=== PATIENT | female | born 1930 | race Asian ===

== ENCOUNTER 2018-10-21 09:23 | Inpatient (IN) | payer MEDICARE, MEDICAID ==
[2018-10-21] MEDS ORDERED: Aspirin Chewable 81 MG TAB ONE (09:39)
[2018-10-21 09:54] LABS: #Basophils 0.1 thou/uL (0.0-0.2); #Lymphocytes 1.3 thou/uL (1.20-3.40); #Neutrophils 12.5 thou/uL (1.40-6.50); %Basophils 0.6 % (0.0-1.0); %Eosinophils 0.1 % (0.0-10.0); %Lymphocytes 8.4 % (21.0-51.0); %Monocytes 6.9 % (0.0-10.0); Hemoglobin 12.9 g/dL (12.0-16.0); Mean Corpuscular HGB CONC 31.5 g/dL (32.0-36.0); Mean Corpuscular Hemoglobin 25.7 pg (27.0-31.0); Mean Corpuscular Volume 81.5 fL (78.0-98.0); Mean Platelet Volume 10.6 fL (7.4-10.4); Platelet Count 172 thou/uL (130-400); RBC Distribution Width 13.4 % (11.5-14.5); Red Blood Cell (RBC) Count 5.04 mill/uL (4.20-5.40); White Blood Cell (WBC) Count 14.9 thou/uL (4.8-10.8)
--- NOTE | 2018-10-21 09:58 | RAD ---
RADIOGRAPH CHEST 1 VIEW: DATE: 10/21/2018 HISTORY: 88-year-old female with chest pain FINDINGS: There are no airspace densities, pulmonary edema, pneumothorax, or cardiomegaly. The lateral costophr enic angles are sharp. IMPRESSION: No acute cardiopulmonary findings.
[2018-10-21] MEDS ORDERED: Heparin 10,000 UNITS/ 10 ML VIAL ONE (10:00)
[2018-10-21] MEDS ORDERED: Nitroglycerin 2% Ointment 1 INCH/1 GM Packet ONE (10:01)
[2018-10-21 10:12] LABS: Digoxin Less than 0.15 ng/mL (0.8-2.0)
[2018-10-21 10:14] LABS: ALT (SGPT) 22 U/L (8-55); AST (SGOT) 65 U/L (5-34); Albumin 3.6 g/dL (3.4-4.8); Alkaline Phosphatase 68 U/L (40-150); Anion Gap 13 mmol/L (10-20); BUN (Urea Nitrogen) 19 mg/dL (9.8-20.1); Bilirubin, Total 0.7 mg/dL (0.2-1.2); CK (CPK) 332 U/L (29-168); Calc. Creatinine Clearance 0 mL/min (70-130); Carbon Dioxide 20 mmol/L (23-31); Chloride 101 mmol/L (98-107); Estimated GFR-MDRD 53; Glucose 197 mg/dL (83-110); Lipase 8 U/L (8-78); Potassium 4.1 mmol/L (3.5-5.1); Protein, Total 6.6 g/dL (6.0-8.3); Sodium 130 mmol/L (136-145)
--- NOTE | 2018-10-21 10:29 | CON ---
DATE OF CONSULTATION: REASON FOR CONSULTATION: Acute myocardial infarction. HISTORY OF PRESENT ILLNESS: Ms. Starks is an 88-year-old woman, who started having difficulty with breathing this morning. She is also having mild chest discomfort. She presented to the emergency room, where she did have ST-segment elevation noted inferiorly. Cannot exclude the inferior Q-waves. The patient continues to appear to be in distress. History is obtained from her grandson and son. PAST MEDICAL HISTORY: None. MEDICATIONS: None. ALLERGIES: NONE. PAST SURGICAL HISTORY: None. REVIEW OF SYSTEMS: Difficult to obtain. PHYSICAL EXAMINATION: GENERAL: The patient is a pleasant 88-year-old woman, who is in no acute distress. The patient appears their stated age. VITAL SIGNS: Blood pressure 118/69, pulse 80, and respirations 20. NEUROLOGIC: The patient is alert and oriented x3 with no focal neurologic deficits. HEENT: Sclerae without icterus. Mouth has moist mucous membranes with normal pallor. NECK: No JVD. Carotid upstroke brisk. No bruits bilaterally. LUNGS: Clear to auscultation with unlabored respirations. BACK: No scoliosis or kyphosis. CARDIAC: Regular rate and rhythm with normal S1 and S2. No S3 or S4 noted. No significant rubs, murmurs, thrills, or gallops noted throughout the precordium. PMI is not displaced. There is no parasternal heave. ABDOMEN: Soft, nontender, nondistended. No peritoneal signs present. No hepatosplenomegaly. No abnormal striae. EXTREMITIES: 2+ femoral and 2+ dorsalis pedis pulses. No cyanosis, clubbing, or edema. SKIN: No gross abnormalities. PERTINENT LABORATORY DATA: Hemoglobin 12.9 and white blood cell count 14.9. IMPRESSION: Acute inferior myocardial infarction. RECOMMENDATIONS: Initial plan was to proceed with coronary angiography. Given her EKG findings in addition to distress, recommended the above. I discussed in full detail with both the grandson and the son. The risks include but not limited to the following: , stroke, NC, need for emergency surgery, loss of limb, bleeding, and infection, as well as a reaction to the dye causing kidney failure and needing long-term dialysis. Other risks include acute stent thrombosis and restenosis, vessel dissection, perforation, need for emergency surgery in addition to distal embolization causing chronic foot discomfort as well as amputation. All questions were answered. After further discussion, the family has opted to proceed with the conservative therapy. They understand the risk of . The medical record does show she is 88, but the family states she is actually 89 years of age. They are not interested in proceeding with angio or bypass or any other invasive means or measures. They also wish the patient not be intubated or cardioverted or compressions. After much discussion, I was decided to proceed with medical therapy. We will add aspirin in addition to Plavix and Lovenox. We will also add Nitropaste half an inch. The patient can be placed in the MICU overnight for close observation. Job ID: [id number]
[2018-10-21 10:51] LABS: CKMB 14.3 ng/mL (0-6.6)
--- NOTE | 2018-10-21 11:30 | PDOC.FPRHP ---
- History of Present Illness Chief Complaint: not feeling well History of Present Illness: 88 yo F with HTN, glaucoma brought in by family for "not feeling well." In ER had troponins in the 30s and was found to have a STEMI w/ ST elevations in inferolateral leads. Cardiology consulted for cardiac cath but after conversation with family they have opted for medical management and DNR status. She was started on heparin and given ASA. Given nitro paste. Patient reports feeling better at time of my assessment, denies chest pain but never had any other symptoms to begin with aside from not feeling well. No prior cardiac history. - History PMHx: HTN, glaucoma PSHx: right eye surgery for glaucoma FHx:non offered Social: denies TAD - Review of Systems General: denies: fever/chills, weight/appetite/sleep changes ENT: denies: nasal congestion, rhinorrhea Respiratory: denies: cough, congestion, shortness of breath Cardiovascular: denies: chest pain, palpitation, orthopnea Gastrointestinal: denies: nausea, vomiting, diarrhea, GI bleeding Genitourinary: denies: dysuria Skin: denies: rashes, lesions Neurological: reports: weakness. denies: numbness, syncope Psychological: denies: anxiety, depression - Vital signs BP: [106/70] HR: [62] RR: [16] Tmax: [] Pox: [98]% on [RA] Wt: [] - Physical Exam Constitutional: NAD -Constitutional: lethargic but responsive to my voice Neck: supple, FROM Heart: RRR, normal S1/S2 Lungs: CTAB, no respiratory distress Abdomen: soft, non-tender Musculoskeletal: normal structure, normal tone Neurological: no focal deficit, CN II-XII intact Skin: capillary refill <2 seconds Heme/Lymphatic: no unusual bruising or bleeding, no purpura FMR H&P: Results - Labs Result Diagrams: 10/21/18 09:37 10/21/18 09:37 Lab results: WBC 14.9 thou/uL (4.8-10.8) H 10/21/18 09:37 Hgb 12.9 g/dL (12.0-16.0) 10/21/18 09:37 Hct 41.1 % (36.0-47.0) 10/21/18 09:37 MCV 81.5 fL (78.0-98.0) 10/21/18 09:37 Plt Count 172 thou/uL (130-400) 10/21/18 09:37 Neutrophils % 84.0 % (42.0-75.0) H 10/21/18 09:37 Sodium 130 mmol/L (136-145) L 10/21/18 09:37 Potassium 4.1 mmol/L (3.5-5.1) 10/21/18 09:37 Chloride 101 mmol/L (98-107) 10/21/18 09:37 Carbon Dioxide 20 mmol/L (23-31) L 10/21/18 09:37 BUN 19 mg/dL (9.8-20.1) 10/21/18 09:37 Creatinine 0.98 mg/dL (0.6-1.1) 10/21/18 09:37 Glucose 197 mg/dL (83-110) H 10/21/18 09:37 Calcium 9.0 mg/dL (7.8-10.44) 10/21/18 09:37 Total Bilirubin 0.7 mg/dL (0.2-1.2) 10/21/18 09:37 AST 65 U/L (5-34) H 10/21/18 09:37 ALT 22 U/L (8-55) 10/21/18 09:37 Alkaline Phosphatase 68 U/L (40-150) 10/21/18 09:37 Creatine Kinase 332 U/L (29-168) H 10/21/18 09:37 CK-MB (CK-2) 14.3 ng/mL (0-6.6) H* 10/21/18 09:37 Serum Total Protein 6.6 g/dL (6.0-8.3) 10/21/18 09:37 Albumin 3.6 g/dL (3.4-4.8) 10/21/18 09:37 Lipase 8 U/L (8-78) 10/21/18 09:37 - EKG Interpretation EKG: ST elevation in III, avF, V5/V6 FMR H&P: A/P - Problem List (1) STEMI (ST elevation myocardial infarction) Current Visit: Yes Status: Acute (2) HTN (hypertension) Current Visit: Yes Status: Acute Code(s): I10 - ESSENTIAL (PRIMARY) HYPERTENSION (3) Glaucoma Current Visit: Yes Status: Acute Code(s): H40.9 - UNSPECIFIED GLAUCOMA - Plan 88 yo F admitted for STEMI #acute STEMI -troponin 31, EKG with ST elevations in inferolateral leads -cardiology consulted, started on heparin and ASA with nitro plaste -will transition to th. lovenox per cards recs -discussed with family, decline invasive measures, will opt for medical management -admit to tele for medical management -discuss with cardiology about prognosis, may need echo at later point to assist in this -consider hospice/pallitiative consult if unimproved #cHTN -hold home meds since BP low normal -monitor BPs on tele, may need to hold nitro paste- parameters placed #Glaucoma -home meds #Leukocytosis -afebrile, no bands, neutrophilic predominance -likely stress related, can repeat in AM code: DNR dvt ppx: th. lovenox PCP: Dr. Rm Discussed with Dr. Bermudez Addendum - Attending - Attending Attestation Date/Time: 10/21/18 [id number] I personally evaluated the patient and discussed the management with Dr. Oglesby at the time of her admission this morning. I agree with the History, Examination, Assessment and Plan documented above with any addition or exceptions noted below.
[2018-10-21] MEDS ORDERED: Nitroglycerin 0.4 MG TAB (25 Tab Bottle) SL PRN (12:34)
[2018-10-21 12:51] VITALS: BMI 22.6
[2018-10-21] MEDS: Sodium Chloride 0.9% 1,000 ML IV SCH ×2 (13:50→21:11)
[2018-10-21] MEDS ORDERED: Nitroglycerin 2% Ointment 1 INCH/1 GM Packet TOP SCH (14:00)
[2018-10-21] MEDS: Nitroglycerin 2% Ointment 1 INCH/1 GM Packet TOP SCH (17:53)
[2018-10-21] MEDS ORDERED: Clopidogrel Bisulfate 75 MG TAB PO SCH (18:45)
[2018-10-21] MEDS ORDERED: Atorvastatin Calcium 40 MG TAB PO SCH (21:00)
[2018-10-21] MEDS: Enoxaparin Sodium 60 MG/0.6 ML SYRINGE SC SCH (21:11)
[2018-10-22] MEDS: Nitroglycerin 2% Ointment 1 INCH/1 GM Packet TOP SCH ×2 (03:35→09:00)
[2018-10-22 04:59] LABS: #Basophils 0.1 thou/uL (0.0-0.2); #Eosinphils 0.1 thou/uL (0.0-0.7); #Lymphocytes 1.6 thou/uL (1.20-3.40); #Monocytes 1.2 thou/uL (0.11-0.59); #Neutrophils 8.8 thou/uL (1.40-6.50); %Basophils 0.7 % (0.0-1.0); %Eosinophils 0.5 % (0.0-10.0); %Lymphocytes 13.6 % (21.0-51.0); %Monocytes 10.3 % (0.0-10.0); Hemoglobin 11.7 g/dL (12.0-16.0); Mean Corpuscular HGB CONC 32.2 g/dL (32.0-36.0); Mean Corpuscular Hemoglobin 26.5 pg (27.0-31.0); Mean Corpuscular Volume 82.5 fL (78.0-98.0); Mean Platelet Volume 10.8 fL (7.4-10.4); Platelet Count 149 thou/uL (130-400); RBC Distribution Width 13.4 % (11.5-14.5); White Blood Cell (WBC) Count 11.7 thou/uL (4.8-10.8)
[2018-10-22 05:23] LABS: Anion Gap 11 mmol/L (10-20); BUN (Urea Nitrogen) 19 mg/dL (9.8-20.1); Calc. Creatinine Clearance 48 mL/min (70-130); Calcium 8.9 mg/dL (7.8-10.44); Carbon Dioxide 20 mmol/L (23-31); Cardiac Risk 4.3 (Less than 4.5); Chloride 104 mmol/L (98-107); Cholesterol 171 mg/dl (< 200 Desired); Estimated GFR-MDRD 68; Glucose 124 mg/dL (83-110); HDL Cholesterol 40 mg/dL (>60 Neg Risk); LDL Cholesterol, Calculated 99 mg/dL; Sodium 131 mmol/L (136-145); Triglycerides 161 mg/dL (Less than 150)
--- NOTE | 2018-10-22 05:35 | PDOC.FM ---
- Subjective Subjective: Pt has no complaints at this time. She says she has no pain. Spoke with son this morning. He is currently staying overnight with his mother. Her daughter came from [place] and takes care of her during the day. Palliative care team recommended hospice, so we put in a referral for hospice today. - Objective MAR Reviewed: Yes Vital Signs & Weight: Vital Signs (12 hours) Temp Pulse Resp BP Pulse Ox 10/22/18 03:13 98.8 F 62 17 114/57 L 98 10/21/18 23:36 97.4 F L 59 L 18 112/54 L 98 10/21/18 20:00 98.1 F 64 16 140/63 99 Weight Weight 63.531 kg Result Diagrams: 10/22/18 04:27 10/22/18 04:27 Phys Exam - Physical Examination Constitutional: NAD HEENT: sclera anicteric, oral pharynx no lesions PERRLA in L eye Neck: supple, full ROM Respiratory: clear to auscultation bilateral Cardiovascular: RRR, no significant murmur Gastrointestinal: soft, non-tender, positive bowel sounds Musculoskeletal: no edema, pulses present Neurological: moves all 4 limbs Psychiatric: normal affect Skin: no rash, cap refill <2 seconds Dx/Plan (1) STEMI (ST elevation myocardial infarction) Status: Acute (2) HTN (hypertension) Code(s): I10 - ESSENTIAL (PRIMARY) HYPERTENSION Status: Chronic (3) Glaucoma Code(s): H40.9 - UNSPECIFIED GLAUCOMA Status: Chronic - Plan Plan: 88 yo F admitted for STEMI 1. Acute STEMI Troponin 31, EKG with ST elevations in inferolateral leads * cardiology consulted, started on heparin and ASA with nitro plaste * will transition to th. lovenox per cards recs * discussed with family, decline invasive measures, will opt for medical management * Discuss with cardiology about prognosis, may need echo at later point to assist in this * hospice/pallitiative consulted, will await their recommendations * Tele: SR with 2 degree Type 1 AVB 2. cHTN hold home meds since BP low normal * monitor BPs on tele 3. Glaucoma * home meds 4. Leukocytosis, Improving afebrile, no bands, neutrophilic predominance * likely stress related * WBC: 14 > 11 5. Elevated Blood Glucose B, 124 * Will monitor * A1C: 5.1% Code Status: DNR Dvt ppx: therapeutic lovenox PCP: Dr. Rm Dispo: Likely home on hospice Addendum - Attending - Attending Attestation Date/Time: 10/22/181945 I personally evaluated the patient and discussed the management with Dr. Rivera I agree with the History, Examination, Assessment and Plan documented above with any addition or exceptions noted below. Patient had code carolee called after patient went asystole and early this pm Daughter at bedside with patient son in law contacting other family member to notify them of patients .
[2018-10-22 06:24] LABS: Hemoglobin A1c 5.6 % (4.0-6.0)
[2018-10-22] MEDS: Enoxaparin Sodium 60 MG/0.6 ML SYRINGE SC SCH (08:56)
[2018-10-22] MEDS ORDERED: Clopidogrel Bisulfate 75 MG TAB PO SCH (09:00)
[2018-10-22] MEDS ORDERED: Aspirin 325 mg Enteric Coated Tablet PO SCH (09:00)
[2018-10-22] MEDS ORDERED: Acetaminophen 325 MG TAB PO PRN (10:01)
[2018-10-22 11:35] VITALS: BP 141/61; TEMP 97.9
--- NOTE | 2018-10-22 12:36 | PDOC.CPN ---
- Subjective Date: 10/22/18 Time: 12:35 Interval history: Patient not seen. Code Green called. CHB and syncopal episode. Discussed with family. Still DNAR. - Review of Systems ROS unobtainable: due to mental status - Objective Allergies/Adverse Reactions: Allergies Allergy/AdvReac Type Severity Reaction Status Date / Time No Known Allergies Allergy Unverified 10/21/18 12:27 Visit Medications: Current Medications Acetaminophen (Tylenol) 650 mg PO Q6H PRN PRN Reason: Headache/Fever or Pain Aspirin (Ecotrin) 325 mg PO DAILY [facility] Last Admin: 10/22/18 08:56 Dose: 325 mg Atorvastatin Calcium (Lipitor) 80 mg PO HS [facility] Last Admin: 10/21/18 21:11 Dose: 80 mg Clopidogrel Bisulfate (Plavix) 75 mg PO DAILY [facility] Last Admin: 10/22/18 08:56 Dose: 75 mg Enoxaparin Sodium (Lovenox) 60 mg SC 0900,2100 [facility] Last Admin: 10/22/18 08:56 Dose: 60 mg Nitroglycerin (Nitrostat) 0.4 mg SL Q5MIN PRN PRN Reason: Chest Pain Nitroglycerin (Nitro-Bid 2% Ointment) 0.5 inch TOP 0200,1000,1800 [facility] Last Admin: 10/22/18 09:00 Dose: 0.5 inch Sodium Chloride (Flush - Normal Saline) 10 ml IVF Q12H PRN PRN Reason: Saline Flush Sodium Chloride (Flush - Normal Saline) 10 ml IVF PRN PRN PRN Reason: Saline Flush Vital Signs & Weight: Vital Signs Temp Pulse Resp BP Pulse Ox 10/22/18 11:34 97.9 F 64 18 141/61 H 95 10/22/18 07:46 97.5 F L 65 18 136/63 99 10/22/18 03:13 98.8 F 62 17 114/57 L 98 Weight 140 lb 1 oz - Labs Result Diagrams: 10/22/18 04:27 10/22/18 04:27 Troponin/CKMB CK-MB (CK-2) 14.3 ng/mL (0-6.6) H* 10/21/18 09:37 Troponin I 31.544 ng/mL (< 0.028) H* 10/21/18 09:37 - Assessment/Plan Assessment/Plan: 1. s/p inferior STEMI 2. CHB 3. DNAR Patient . Went to CHB and then asystole. Family still stated they wanted nothing done. Dr. Ku made aware. - Critical Care Time Critical care time (mins): 15
--- NOTE | 2018-10-22 16:03 | EKG ---
Test Reason : Blood Pressure : / mmHG Vent. Rate : 068 BPM Atrial Rate : 101 BPM P-R Int : 000 ms QRS Dur : 078 ms QT Int : 384 ms P-R-T Axes : 069 006 015 degrees QTc Int : 408 ms Sinus tachycardia with 2nd degree A-V block (Mobitz I) ST elevation consider inferior injury or acute infarct ACUTE MN / STEMI Consider right ventricular involvement in acute inferior infarct Abnormal ECG Reconfirmed by CORIN AMEZCUA, AGUILA ([id number]), deputy editor in chief LARON GODOY ([id number]) on 10/22/2018 4:02:38 PM Referred By: Confirmed By:AGUILA COOMBS MD
--- NOTE | 2018-10-22 17:02 | PDOC.EVN ---
Event Note - Event Note Event Note: Note: Amos zarco was called at 1219 for HRs <40s. Patient was unresponsive in bathroom, she was taken to bed and did not have spontaneous breaths or a pulse. Family was present in the room at bedside and did not want any heroic measures. Patient was a DNAR on admission. No CPR was done. Time of was 1224, called by Dr. Rafal Pa MD. PE: HEENT: pupils were fixed and dilated Card: No pulse, no auscultated heart sounds Resp: No spontaneous breaths Neuro: No withdrawal to painful stimuli TOD: 1224 on 10/22/17 Cause of : Cardiac arrest 2/2 acute inferior VT Secondary diagnoses: HTN Hospital course: Patient was admitted for acute STEMI. Cardiac catheterization was recommended but family declined intervention. Patient was DNAR and medical management was preferred. Patient had uneventful hospital course until code green and cardiac arrest.
== END 2018-10-22 12:24 | disposition expired ==
LOC: ERS 09:23 → 2NO 12:33
PROVIDERS: ADMIT Internal Medicine Cardiovascular Disease; ATTEND Internal Medicine Cardiovascular Disease
DX: I21.19 ST elevation (STEMI) myocardial infarction involving other coronary artery of inferior wall (principal); I44.2 Atrioventricular block, complete; I10 Essential (primary) hypertension; H40.9 Unspecified glaucoma; Z66 Do not resuscitate; Z51.5 Encounter for palliative care; I46.2 Cardiac arrest due to underlying cardiac condition; Z53.29 Procedure and treatment not carried out because of patient's decision for other reasons; D72.829 Elevated white blood cell count, unspecified; R73.9 Hyperglycemia, unspecified
CPT/HCPCS: 36415; 71045; 80048; 80053; 80061; 80162; 82550; 82553; 83036; 83690; 84484; 85025; 93005; 93306; 94760; 96361; 96374; J1644; J1650